=== PATIENT | female | born 1995 | race American Indian/Alaskan Native ===

== ENCOUNTER 2016-04-07 17:28 | Emergency (ER) | payer OTHER ==
[2016-04-07 19:25] VITALS: BP 113/69
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
== END 2016-04-07 21:58 | disposition home or self-care (01) ==
LOC: ED 17:28
DX: S16.1XXA Strain of muscle, fascia and tendon at neck level, initial encounter (principal); S29.012A Strain of muscle and tendon of back wall of thorax, initial encounter; S76.012A Strain of muscle, fascia and tendon of left hip, initial encounter; F17.200 Nicotine dependence, unspecified, uncomplicated; M41.9 Scoliosis, unspecified; K08.109 Complete loss of teeth, unspecified cause, unspecified class; Z79.899 Other long term (current) drug therapy; Z88.0 Allergy status to penicillin; V89.2XXA Person injured in unspecified motor-vehicle accident, traffic, initial encounter; Y93.89 Activity, other specified; Y99.8 Other external cause status; Y92.488 Other paved roadways as the place of occurrence of the external cause
CPT/HCPCS: 99282

== ENCOUNTER 2016-07-11 20:27 | Emergency (ER) | payer OTHER ==
--- NOTE | 2016-07-12 02:43 | XRay Report ---
FINAL REPORT PROCEDURE: XR WRIST 3 RT TECHNIQUE: RIGHT wrist radiographs, including AP, lateral, and oblique views. CPT 55741 HISTORY: RIGHT WRIST PAIN COMPARISON: No prior studies are available for comparison. FINDINGS: Fracture (s) and/or Dislocation(s): None . Alignment: Normal . Joint space(s): Normal . Soft tissues: Normal . Bone mineralization: Normal . Foreign bodies: None . IMPRESSION: Normal Examination.
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
[2016-07-12 04:40] VITALS: BP 126/69
== END 2016-07-12 03:45 | disposition home or self-care (01) ==
LOC: ED 20:27
DX: M25.531 Pain in right wrist (principal); F17.200 Nicotine dependence, unspecified, uncomplicated; F12.10 Cannabis abuse, uncomplicated; W22.8XXA Striking against or struck by other objects, initial encounter; Y93.9 Activity, unspecified; Y92.9 Unspecified place or not applicable; Y99.9 Unspecified external cause status
CPT/HCPCS: 99284

== ENCOUNTER 2018-09-21 18:31 | Emergency (ER) | payer OTHER ==
[2018-09-21 19:13] VITALS: BP 120/66
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
[2018-09-21] MEDS ORDERED: NORCO 5/325 PO ONE (20:23)
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
== END 2018-09-21 20:43 | disposition left against medical advice (07) ==
LOC: ED 18:31
DX: R51 Headache (principal); M54.2 Cervicalgia; F17.200 Nicotine dependence, unspecified, uncomplicated; Z79.899 Other long term (current) drug therapy; Z88.1 Allergy status to other antibiotic agents; Z88.0 Allergy status to penicillin; V89.2XXA Person injured in unspecified motor-vehicle accident, traffic, initial encounter; Y93.89 Activity, other specified; Y92.488 Other paved roadways as the place of occurrence of the external cause; Y99.8 Other external cause status
CPT/HCPCS: 99281